=== PATIENT | male | born 2000 | race Caucasian/White ===

== ENCOUNTER 2023-06-23 11:56 | Day surgery (SDC) | payer OTHER ==
[2023-06-23] MEDS ORDERED: EPINEPHrine 1 MG/ML AMP ONE (13:25)
[2023-06-23] MEDS ORDERED: Bupivacaine 0.25% HCL 30 ML VIAL ONE (13:25)
[2023-06-23] MEDS ORDERED: fentaNYL PF 100 MCG/2 ML SYRINGE ONE (13:28)
[2023-06-23] MEDS ORDERED: SUGAMMADEX SODIUM 200 MG/2 ML VIAL ONE (13:28)
[2023-06-23] MEDS ORDERED: Ketorolac Tromethamine 30 MG/ML VIAL ONE (13:48)
[2023-06-23] MEDS ORDERED: Glycopyrrolate 0.2 MG/ML 5 ML SYRINGE ONE (13:48)
[2023-06-23] MEDS ORDERED: Ondansetron PF 4 MG/2 ML Vial ONE (13:48)
[2023-06-23] MEDS ORDERED: PROPOFOL 200 MG/20 ML VIAL ONE (13:48)
[2023-06-23] MEDS ORDERED: NEOSTIGMINE 3 MG/3 ML SYR 3 MG/3 ML SYRINGE ONE (13:48)
[2023-06-23] MEDS ORDERED: Dexamethasone 20 MG/5 ML VIAL ONE (13:48)
[2023-06-23] MEDS ORDERED: Lidocaine 1% PF 5 ML VIAL ONE (13:48)
[2023-06-23] MEDS ORDERED: Rocuronium Bromide 10 MG/ML (10ML VIAL) ONE (13:48)
[2023-06-23] MEDS ORDERED: Succinylcholine 200 MG/10 ml SYRINGE FS ONE (13:48)
[2023-06-23] MEDS ORDERED: cefOXitin 2 GM VIAL ONE (14:06)
== END 2023-06-23 16:15 | disposition home or self-care (01) ==
LOC: UNDOADMIN 11:56 → SDC 11:56 → SURG A 11:56 → EDSTATUS 13:13 → SDC 16:15 → UNDODISIN 16:15
PROVIDERS: ATTEND Surgery
PROC: 0DTJ4ZZ Resection of Appendix, Percutaneous Endoscopic Approach (ICD-10-PCS; principal; 2023-06-23)
DX: K35.80 Unspecified acute appendicitis (principal); Z90.89 Acquired absence of other organs; Z88.2 Allergy status to sulfonamides
CPT/HCPCS: 88304; A4314; A4649; C1776; J0171; J0694; J1100; J1885; J2405; J2704; S0020